=== PATIENT | male | born 1945 | race Caucasian/White ===

== ENCOUNTER 2019-07-29 17:07 | Inpatient (IN) | payer OTHER ==
[~2019-07-29] VITALS: Ht 190.5 cm; Wt 72.9 kg
--- NOTE | ~2019-07-29 | EMS ---
[facility] [address] [place] [address] EMS Patient Care Report Name: KALYAN WHITESIDE Room #: PRE MKareem#: [id number] Admission: Attend Phys: Discharge: Date of : 45 Report #: [id number] THIS REPORT FOR: //name// Report Transmitted: 07/29/2019 16:44 EMS Care Summary [place], [place]/[facility] Incident [id number] @ 07/29/2019 16:07 Incident Location [address] [place] [address] Patient VONDA WHITESIDE Male, 73 Years 1945 Patient Address [address] [place] [address] Patient History Congestive Heart Failure (CHF),Hypertension (HTN),Cardiac Condition - Other,Type 2 Diabetes, Patient Allergies No known allergies, Patient Medications Metformin, Carvedilol, Chief Complaint Weakness Disposition Transported No Lights/[place] Reason Breathing Problem Transported To [facility] Narrative Pt. reports recent weakness of greater than one week. He also has shortness of air that comes and goes. He has not eaten in three days due to significant [address] [address] EMS Patient Care Report Name: KALYAN WHITESIDE Room #: PRE Mackenzie#: [id number] Admission: Attend Phys: Discharge: Date of : 45 Report #: [id number] weakness. Home Health nurse agency is supposed to be helping him manage his medicines and help him care for wound on his right foot (post amputation) but they have not been actively involved. He is frustrated, out of meds, in pain and is struggling to care for his ADL's without assistance. Pt. denies cough but later clearing had a dry cough at least three times (mask placed on pt. upon arrival of [facility]). Pt. found in chair weak , no obvious life threats, but walking did seem to tire him out quickly and he was winded rule out COVID-19, generalized weakness, infected wound/sepsis stemming from right foot ulcer/wound Pt. assisted to cot, secured, to ambulance, EKG, bG, transported to hospital without changes, Low grade temporal temp upon arrival at [facility] (99.3), Care transferred to senior staff specialized employment with report given Initial Vitals @16:49P: 104,R: 37,TX Suspected: false @16:26P: 111,BP: 149/73,SpO2: 98, @16:57P: 101,R: 38,BP: 148/82,Pain: 4/10,GCS: 15,CO: 6,SpO2: 95,Revised Trauma: 11, Assessments @16:20MENTAL:Person Oriented,Event Oriented,Time Oriented,Place Oriented,SKIN:HEENT:LUNG SOUNDS:ABDOMEN:PELVIS//GI:EXTREMITIES:PULSE:NEURO: Impression Shortness of breath Procedures @16:20ALS AssessmentResponse: UnchangedSucceeded@16:22StretcherResponse: Unchanged Timeline 16:06,Call Received 16:06,Dispatch Notified 16:07,Dispatched 16:09,En Route 16:14,On Scene 16:17,At Patient 16:20,ALS Assessment,Response: UnchangedSucceeded, 16:22,Stretcher,Response: Unchanged 16:26,BP: 149/73 M,PULSE: 111,RR: R,SPO2: 98 Ox,ETCO2: ,BG: ,PAIN: ,GCS: , 16:34,Depart Scene 16:49,BP: / M,PULSE: 104,RR: 37 R,SPO2: Ox,ETCO2: ,BG: ,PAIN: ,GCS: , [facility] [address] [place] [address] EMS Patient Care Report Name: KALYAN WHITESIDE Room #: PRE M.R.#: [id number] Admission: Attend Phys: Discharge: Date of : 45 Report #: [id number] 16:57,BP: 148/82 M,PULSE: 101,RR: 38 R,SPO2: 95 Ox,ETCO2: ,BG: ,PAIN: 4,GCS: 15, 17:00,At Destination 17:38,Call Closed Disclaimer v1.1 Copyright 2020 [employer] This EMS Care Summary contains data elements from the applicable legal record (which may be displayed differently). It is designed to provide pertinent information for the following purposes: continuity of care, clinical quality, and state data reporting. The complete legal record is available to ED staff and administrators of the receiving hospital in [employer]'s Patient Tracker. All data is provided "as is."
--- NOTE | ~2019-07-29 | HC ---
[facility] [place] [address] CONSULTATION Name: VONDA WHITESIDE Room #: 439-P ADM IN M.R.#: [id number] Admission: 07/29/19 Attend Phys: Dania Aguirre Discharge: Date of : 45 Report #: [id number] THIS REPORT FOR: cc: PENELOPE - No family physician/PCP PENELOPE - Oksana family physician/PCP Michael Barkdsale MD ~ CC: [facility] physician/PCP Dania Aguirre DATE OF SERVICE: 08/01/2019 ORTHOPEDIC CONSULTATION CHIEF COMPLAINT: Right foot wound. HISTORY OF PRESENT ILLNESS: The patient is a pleasant 73-year-old gentleman seen for evaluation of his right foot. He is a poor historian and is able to provide some details regarding his foot, but he notes over the last few days, increased swelling and wound drainage from the plantar aspect of his foot. In January of 2019, he underwent toe/partial foot amputation by my partner, Dr. Simon Hernandez. He reports having some difficulty with that healing. He lives alone at home with his small dog, a ratter that he reports. He has been self isolating, has had no known exposure to any ill individuals. He denies any other symptoms than his right lower extremity. PAST MEDICAL HISTORY: Significant for diabetes wounds, peripheral neuropathy, peripheral vascular disease, hypertension, protein-calorie malnutrition. ALLERGIES: No known drug allergies. CURRENT MEDICATIONS: Please see current MAR. SOCIAL HISTORY: The patient is retired. He lives alone and has family in town per his report. VITAL SIGNS: Include temperature 37.1, pulse 67, respirations 17, BP 138/54. PHYSICAL EXAMINATION: GENERAL: The patient is alert, oriented, answering questions to the best of his ability. EXTREMITIES: Examination of the right lower extremity reveals 2 plantarly based wounds over the metatarsal heads. Drainage is noted here. These are full thickness lesions. He has first through third toes previously amputated. He has diminished sensation. Mild swelling of the foot. No lymphangitic streaking. No obvious pain, tenderness or swelling about the hindfoot or more distal leg. [address] [address] CONSULTATION Name: VONDA WHITESIDE Room #: 439-P ADM IN M.R.#: [id number] Admission: 07/29/19 Attend Phys: Dania Aguirre Discharge: Date of : 45 Report #: [id number] LABORATORY DATA: Reviewed. IMAGING STUDIES: Including radiographs and MRI was reviewed. The MRI demonstrates a fluid collection in the area of the second metatarsal head representing a subcutaneous abscess, abnormal signal within the distal aspect of the second metatarsal felt to represent osteomyelitis, previous amputations noted and then abnormal signal in the distal half of the third metatarsal. Mild soft tissue edema is noted. IMPRESSION: Persistent left forefoot wound/soft tissue infection and abscess/osteomyelitis involving the second and third metatarsals. PLAN: Reviewed with the patient potential treatment options including revision partial foot amputation at more of the transmetatarsal level versus a below-knee amputation. We discussed that the below-knee amputation would likely provide more consistent healing with reduced risk of persistent infection and having the need for continued revision type surgeries. The patient at this point has no interest in a below-knee amputation. He is willing to consent to revision of his previous surgery with an attempt to save as much length as possible while understanding the risks that this does have a high potential need for future surgery. We obviously cannot guarantee that the wound will heal or that he will have no further difficulties with this. He will need to continue with his IV antibiotics and the wound treatment. The patient felt comfortable proceeding in this manner and wished to proceed with the above. By: [id number] Michael Barksdale MD /nt
--- NOTE | ~2019-07-29 | O ---
[facility] [place] [address] OPERATIVE REPORT Name: VONDA WHITESIDE Room #: 439-P ADM IN M.R.#: [id number] Admission: 07/29/19 Attend Phys: Dania Aguirre Discharge: Date of : 45 Report #: [id number] THIS REPORT FOR: cc: [facility] - No family physician/PCP FAM - No family physician/PCP Michael Barksdale MD ~ CC: [facility] physician/PCP Dania Aguirre PREOPERATIVE DIAGNOSES: Right forefoot osteomyelitis involving the second and third metatarsals, plantarly based wounds, soft tissue abscess, history of prior foot amputation. POSTOPERATIVE DIAGNOSES: Right forefoot osteomyelitis involving the second and third metatarsals, plantarly based wounds, soft tissue abscess, history of prior foot amputation. PROCEDURE PERFORMED: Right transmetatarsal forefoot amputation. SURGEON: Michael Barksdale MD AUTO FLEET MANAGER: None. ANESTHESIA: General. FLUIDS: 400 mL crystalloid. ESTIMATED BLOOD LOSS: Approximately 5 mL. SPECIMENS: Right forefoot sent for specimen and cultures obtained from the forefoot abscess fluid. DESCRIPTION OF PROCEDURE: After proper identification of the patient and operative site in preoperative holding area, the operative site was signed by myself. The patient has been on IV antibiotics. We reviewed his MRI findings and discussed potential treatment options. The patient agreed to a transmetatarsal-type amputation to preserve as much of the foot as possible. We again reviewed the potential for this having persistent infection or not healing or delayed healing of the soft tissues and the potential need for further care and treatment including revision amputation at a higher level. The patient was aware of this and wished to proceed with the above. He was brought back to the operative suite after induction of satisfactory general anesthesia. The right lower extremity was sterilely prepped and draped in the usual manner. A tourniquet had been applied to the upper thigh. The limb was elevated for exsanguination purposes and the tourniquet was inflated to 300 mmHg. At this point, fishmouth-type incisions were planned. The patient had two separate plantarly based full-thickness ulcerations in the region of the first and second [address] [address] OPERATIVE REPORT Name: STEVOVONDA Room #: 439-P ADM IN M.R.#: [id number] Admission: 07/29/19 Attend Phys: Dania Aguirre Discharge: Date of : 45 Report #: [id number] metatarsal heads. These fishmouth and flaps were created proximal to this and extended through the deeper soft tissues. An oscillating saw was utilized to perform osteotomies of the first through fifth metatarsals. Care was taken to ensure there were no significant sharp edges or bony prominences that may lead to further ulceration. The soft tissues were thoroughly irrigated with antibiotic irrigant, but prior to doing so, cultures were obtained. The skin of the flaps appeared viable again with his peripheral vascular disease as we had talked about preoperatively. We will see what his blood flow and healing potential is with respect to healing. The tourniquet was deflated. There was a small amount of punctate bleeding in 2 small plantarly based vessels that were cauterized to maintain good hemostasis. At this point, a xhqpv-lgjulab-ekqx Eddie drain was placed deep. The soft tissues were closed with 2-0 nylon. A sterile compressive dressing was applied. He was awakened and transferred to the recovery room in stable condition. By: [id number] Michael Barksdale MD /nt
[~2019-07-29 17:07] MED LIST: ALLOPURINOL 30300 M1 PO; ASPIRIN81 M2 PO; COZAAR 50 MG TA50 M1 PO; FUROSEMIDE 40 M40 M1 PO; GEMFIBROZIL 60600 MG PO; GLIPIZIDE ER2.5 MG PO; GLUCOPHAGE1000 MG PO; KLOR-CON 1010 MEQ PO; NEURONTIN600 MG PO; NORCO 5-325 TA1 EACH PO; PRAVACHOL 20 MG20 M1 PO
[2019-07-29 17:09] VITALS: BP 142/89
[2019-07-29 17:33] LABS: ABSOLUTE NEUTROPHILS 9.7 thou/uL (1.4-8.2); BASOPHILS 0.3 % (0.0-2.0); EOSINOPHILS 0.3 % (0.0-3.0); HEMATOCRIT 31.2 % (42.0-52.0); HEMOGLOBIN 9.9 gm/dL (14.0-18.0); LYMPHOCYTES 6.8 % (24.0-44.0); MCH 29.7 pg (26.0-34.0); MCHC 31.8 g/dL (28.0-37.0); MCV 93.3 fL (80.0-100.0); MONOCYTES 6.3 % (1.0-8.0); PLATELET COUNT 375 thou/uL (150-400); POLYS 86.3 % (36.0-66.0); RBC 3.34 mil/uL (4.50-6.00); RDW 15.8 % (10.5-14.5); WBC 11.3 thou/uL (4.0-11.0)
[2019-07-29 17:41] LABS: CALCIUM 9.1 mg/dL (8.5-10.1); CREATININE 1.5 mg/dL (0.7-1.3); POTASSIUM 4.2 mmol/L (3.5-5.1)
[2019-07-29 17:47] LABS: ALBUMIN 2.3 g/dL (3.4-5.0); DIRECT BILIRUBIN 0.2 mg/dL (<0.1-0.2); TOTAL BILIRUBIN 0.5 mg/dL (<0.1-1.0); TOTAL PROTEIN 8.1 g/dL (6.4-8.2)
[2019-07-29 18:59] LABS: CHOLESTEROL 62 mg/dL (<200); HDL CHOLESTEROL 15 mg/dL (>40); LDL CHOLESTEROL 34 mg/dL (<100); TC:HDL 4.1 Ratio (Not establshd); TRIGLYCERIDE 67 mg/dL (<150); VLDL 13 mg/dL (<40)
--- NOTE | 2019-07-29 19:20 | NUR ---
FLAKE CUTTER OPERATOR CALLED TO GIVE REPORT TO INPATIENT NURSE BUT WAS TOLD THEY WERE IN THE MIDDLE OF SHIFT CHANGE AND CALL WILL BE RETURNED.
[2019-07-29 19:25] VITALS: BP 110/47
--- NOTE | 2019-07-29 19:30 | NUR ---
AUTOMATIC WHEEL LINE OPERATOR PLACED SECOND CALL TO INPATIENT UNIT, WAS TOLD RECIEVING NURSE WAS STILL IN THE MIDDLE OF SHIFT CHANGE AND WILL RETURN CALL DEYANIRA.
[2019-07-29 20:06] VITALS: BP 128/56
[2019-07-29 23:40] VITALS: BP 150/65
--- NOTE | 2019-07-30 01:54 | NUR ---
PT ARRIVED TO UNIT FROM [address] [place] [address] VIA BED ACCOMPANIED BY RN AND CARTON STAPLER. PT REPORTEDLY ADMITTED TO [address] [place] [address] ARRIVING IN THE SEVEN O'CLOCK (PM) HOUR. DUE TO REPORTED COUGH AND SOA PT WAS TRANSFERED HERE TO ROOM 355 A PUI FOR COVID-19 INFECTION. PT ARRIVED AT 2252 WITH IVF INFUSING. PT WAS IRRITABLE AND DEMANDING. "HURRY UP, AND TURN THOSE OVER HEAD LIGHTS OFF. THEY BOTHER MY EYES. EVERY DAMN TIME I COME HERE THEY LEAVE THOSE DAMN LIGHTS ON. I WANT YOU TO TURN THOSE LIGHTS OFF. AND HURRY UP, I HAVEN'T SLEEP IN TWO DAYS, I'M TIRED." PER ER TRIAGE NOTES, PT ARRIVED COMPLAINING OF SOA AND COUGH. "NO I DIDN'T. I DON'T HAVE THAT VALDEZ VIRUS. I DON'T HAVE HARDLY ANY COUGH AND I'M WASN'T HAVING ANY SOA. I CAME HERE BECAUSE OF MY FOOT. IT'S INFECTED AND ITS STARTING TO HURT." PT WOULD RECURRENTLY STATES THESE THINGS OVER AND OVER AGAIN. HAD TO BE ENCOURAGED TO ALLOW THE COVID-19 SWAB TO BE TAKEN. "WILL THIS PROVE I DON'T HAVE IT?" PT DID FINALLY ALLOW THE SWAB TO BE DONE. ORDERS IN PROGRESS. ADMISSION ASSESSMENTS COMPLETED. DENIES ANY ALLERGIES. STATES HE USES [facility] BUT WAS UNSURE OF ITS EXACT ADDRESS. ALSO DOES NOT KNOW HIS MEDICATIONS. "I TAKE LIKE TWENTY DIFFERENT MEDICATIONS. I CAN'T KNOW THEM ALL. AND I DIDN'T BRING A LIST. I CAN'T EVEN GET MY HEART MEDICATION REFILLED OR ANY PAIN MEDICATION." REFUSED TO RATE PAIN IN RIGHT FOOT ON A NUMERIC SCALE, WOULD ONLY SAY "ITS HURTS." FACES SCALE USED. DENIED USING ANY TYLENOL OR IBUPROFEN FOR PAIN. "TYLENOL WOULDN'T DO A DAMN THING ANYWAY." STATED HE HAD HEART PROBLEMS BUT WAS UNABLE TO PROVIDED FURTHER DETAILS. "LETS SAY I HAVE CONGESTIVE HEART FAILURE OK." DENIED EVER HAVING AN ECHO DONE. "I CAME HERE HOPING TO SEE A BASTER HAND. HE'LL RENEW MY HEART MEDICATIONS. VIEW MEDICATION CLAIM HISTORY, NO SCRIPS FILLED SINCE AUGUST OF 2018. PT DID NOT PROVIDE AN ANSWER TO THE QUESTION OF WHEN DID HE LAST FILL ANY PRESCRIPTIONS. STATES HE IS ABLE TO MOVE AROUND HIS APARTMENT WITH A CANE. "I GET AROUND MY APARTMENT FINE. I ALSO HAVE A SCOOTER I CAN USE."
--- NOTE | 2019-07-30 04:15 | NUR ---
PATIENT ARRIVED ON UNIT AT 2034 VIA CART FROM ER ACCOMPANIED BY ED PERSONEL. TEMP WAS TAKEN AND IT WAS 102.2. CALLED INVESTIGATOR UTILITY BILL COMPLAINTS AND LAW ENFORCEMENT INSTRUCTOR. PATIENT'S STATUS WAS CHANGED TO R/O COVID-19 EVEN THOUGH PATIENT SAYS HE DOES NOT HAVE IT. PATIENT DEMANDING WANTING THIS AND THAT RIGHT NOW. TRANSFERRED TO 3W VIA BED. REPORT WAS GIVEN TO RN ON 3W.
[2019-07-30 06:30] VITALS: BP 144/92
[2019-07-30 08:18] VITALS: BP 133/54
--- NOTE | 2019-07-30 08:33 | EKG ---
[facility] [place] [address] [place] [address] ELECTROCARDIOGRAM REPORT Name: VONDA WHITESIDE Room #: 355- ADM IN M.R.#: [id number] Admission: 07/29/19 Attend Phys: Dania Aguirre Discharge: Date of : 45 Report #: [id number] THIS REPORT FOR: cc: PENELOPE - No family physician/PCP PENELOPE - No family physician/PCP Jonathan Boo MD [facility] THIS REPORT FOR: //name// [facility] ED Test Date: 2019-07-29 Test Time: 17:19:15 Pat Name: VONDA WHITESIDE Department: Room: [facility] Gender: M Chairman President And Chief Executive Officer: [facility] : 1945 Requested By: Curt Shelton Order Number: [id number] MD: Jonathan Boo Measurements Intervals [place] Rate: 98 P: 76 VT: 201 QRS: 14 QRSD: 147 T: -25 QT: 363 QTc: 464 Interpretive Statements Sinus rhythm Right bundle branch block Compared to ECG 11/18/2012 11:56:46 Right bundle branch block is now present Electronically Signed On 07-30-2019 8:31:59 CDT by Jonathan Boo [email or web address] <ELECTRONICALLY SIGNED> By: Jonathan Boo MD, [facility] 07/30/19 0831 1719 1719 Jonathan Boo MD, [facility] /EPI
[2019-07-30 10:43] LABS: URINE BILIRUBIN NEGATIVE (Negative); URINE BLOOD NEGATIVE (Negative); URINE CLARITY CLEAR; URINE COLOR YELLOW; URINE GLUCOSE-RANDOM* NEGATIVE (Negative); URINE KETONES NEGATIVE (Negative); URINE LEUKOCYTES-REFLEX NEGATIVE (Negative); URINE NITRITE-REFLEX NEGATIVE (Negative); URINE PROTEIN (DIPSTICK) NEGATIVE (Negative)
--- NOTE | 2019-07-30 10:54 | EKG ---
[facility] [place] [address] ELECTROCARDIOGRAM REPORT Name: VONDA WHITESIDE Room #: 355-P ADM IN M.R.#: [id number] Admission: 07/29/19 Attend Phys: Dania Aguirre Discharge: Date of : 45 Report #: [id number] THIS REPORT FOR: cc: PENELOPE - Oksana family physician/PCP PENELOPE - No family physician/PCP Maco Parish MD ~ THIS REPORT FOR: //name// [facility] ED Test Date: 2019-07-29 Test Time: 19:17:06 Pat Name: VONDA WHITESIDE Department: Room: Gender: Male Mask Designer: JOSUE : 1945 Requested By: Order Number: [id number] MD: Maco Parish Measurements Intervals [place] Rate: 92 P: 47 [place]: 190 QRS: -8 QRSD: 151 T: -8 QT: 400 QTc: 495 Interpretive Statements Sinus rhythm Probable left atrial enlargement IVCD, consider atypical RBBB Artifact in lead(s) I,II,aVF,V1,V2,V3,V4,V5 Compared to ECG 11/18/2012 11:56:46 No significant changes Electronically Signed On 07-30-2019 10:52:43 CDT by Maco Parish [email or web address] <ELECTRONICALLY SIGNED> By: Maco Parish MD 07/30/19 1052 16 16 Maco Parish MD /EPI
--- NOTE | 2019-07-30 13:10 | NUR ---
INITIAL ASSESSMENT: Received consult. JOSE ALFREDO reviewed chart and spoke with nursing and attending physician. Pt was admitted from home due to right foot diabetic ulcer/abscess. Pt with hx of toe amputations on his right food. Ortho and surgery consulted. Pt is in Enhanced Isolation to r/o COVID-19. MRI pending results of COVID. SW spoke with pt via phone. Introduced role of SW. Pt appears to be alert/orientated x 4. Lengthy discussion with pt regarding his prior level of functioning and discharge plan. Pt reports he lives alone in an apt with elevator access. No stairs to navigate. Pt has a scooter and cane. Pt is currently on service with [facility] for RN visits. Pt also has [place]-Medicaid in home care through [facility] for home health aide services. Pt does have a PCP. Pt has been to [facility] three times in the past, and is agreeable with returning there if needed. Pt may need partial foot amputation. Pt is hoping that it will not come to that. Pt is not . Does not have children. His niece is involved in his care, and his friend, Saundra, assists him with his care needs. Pt states that he is interested in assisted living in the future. SW is following to assist as needed with discharge planning.
[2019-07-30] MEDS ORDERED: VITAMIN B-121000 MC2 SUBLING (15:06)
[2019-07-30] MEDS ORDERED: PLAVIX 75 MG TA75 MG PO (15:07)
[2019-07-30] MEDS ORDERED: ATORVASTATIN CA80 MG PO (15:08)
[2019-07-30] MEDS ORDERED: AMITRIPTYLINE H10 M3 PO (15:09)
[2019-07-30] MEDS ORDERED: LISINOPRIL2.5 MG PO (15:10)
[2019-07-30] MEDS ORDERED: ALLOPURINOL 10100 M1 PO (15:11)
[2019-07-30] MEDS ORDERED: HYDRALAZINE 10M10 MG PO (15:11)
[2019-07-30] MEDS ORDERED: CARVEDILOL12.5 MG PO (15:12)
[2019-07-30] MEDS ORDERED: TAMSULOSIN HCL0.4 MG PO ×2 (15:13→15:15)
--- NOTE | 2019-07-30 17:04 | NUR ---
Assumed care approx 0700. Pt alert and oriented x4. Pt agitated because he doesn't believe he has COVID-19. Explained to pt that this is rule-out at this time. Spoke to pt's IFRAH, Rashida, and she provided contact information for pt's HH. Spoke to Ellie at [facility] and she provided updated med list and diagnoses. Meds and medical diagnoses updated in chart. Ellie reported that pt drinks 3 glasses of whiskey per day and a h/o AFIB. Dr. Aguirre notified. Ativan ordered for prn ETOH withdrawal. Pt has been afebrile this shift. Pt tolerating room air at this time. No signs of respiratory distress. Pt wound on Rt foot dressed this AM. COVID-[address] Aguirre notified and orders given for med/surg. Pt slowly progressing towards plan of care goals. Will continue to monitor.
[2019-07-30 17:17] VITALS: BP 127/57
[2019-07-30 19:50] VITALS: BP 97/52
[2019-07-31 03:40] VITALS: BP 115/56
--- NOTE | 2019-07-31 05:42 | NUR ---
Assumed pt care at 1900. Pt's A/OX4. VSS.Denies pain on assessment. Woundcare to right foot done w/o problems at HS. Pt reports he uses an electric W/C @ home so he doesn't walk for long distances. Voiding per urinal,with frequent spills in bed. Abd distended but soft to touch. IVF infusing via RFA w/o problems. Fall precautions in place, calls approp for help. Supposed to get an MRI of his foot states he'll answer questionare later. Will continue to monitor pt.
[2019-07-31 07:33] VITALS: BP 128/59
--- NOTE | 2019-07-31 14:05 | NUR ---
PT TO HAVE AN MRI THIS DAY AND ORTHO HAS BEEN CONSULTED. CM TO FOLLOW INDICATED WITH DC PLANNING.
[2019-07-31 15:26] VITALS: BP 121/48
--- NOTE | 2019-07-31 19:11 | NUR ---
VSS-AFEBRILE. ROOM AIR. DENIES PAIN. FALL PRECAUTIONS IN PLACE. TUR NS SELF
[2019-07-31 20:06] VITALS: BP 138/54
[2019-08-01 03:47] VITALS: BP 129/42
[2019-08-01 05:51] LABS: HEMATOCRIT 26.5 % (42.0-52.0); HEMOGLOBIN 8.4 gm/dL (14.0-18.0); MCH 29.7 pg (26.0-34.0); MCHC 31.7 g/dL (28.0-37.0); MCV 93.6 fL (80.0-100.0); RBC 2.83 mil/uL (4.50-6.00); RDW 16.1 % (10.5-14.5); WBC 7.5 thou/uL (4.0-11.0)
[2019-08-01 06:08] LABS: ALBUMIN 1.5 g/dL (3.4-5.0); CALCIUM 7.6 mg/dL (8.5-10.1); CREATININE 0.9 mg/dL (0.7-1.3); PHOSPHORUS 5.2 mg/dL (2.5-4.9); POTASSIUM 3.9 mmol/L (3.5-5.1)
[2019-08-01 09:43] VITALS: BP 135/56
--- NOTE | 2019-08-01 11:32 | NUR ---
Assumed pt care at 7am.Pt left for surgery around shift change this morning per bed and returned to floor at 0940 in stable condition.Post assessment completed and am meds given as ordered but insulin.Dr Aguirre here,new order noted.Pt refused morfin cath insertion after bladder scan shows >229,Dr Aguirre notified.Surgigal drsg c/d/i to rt foot.Medicated pt with po pain med with relief.Will continue to monitor.
--- NOTE | 2019-08-01 14:40 | NUR ---
ON-GOING ASSESSMENT: CM REVIEWED CHART AND SPOKE WITH ATTENDING. PT IS S/P RT TRASMET AMPUTATION. ATTENDING STATING PATIENT WILL LIKELY NEED SNF. PT/OT IS ORDERED BUT EVALS ARE PENDING. CM SPOKE WITH PATIENT ABOUT POSSIBLE NEED FOR SNF, HE PREFERS TO GO TO [facility] BEING THERE IN THE PAST. CM FAXED REFERRAL AND SPOKE WITH CATHY AT [facility]. SHE STATES PT WILL BE ON 14 DAY QUARENTINE DUE TO NEW RESTRICTIONS WITH COVID 19 PANDEMIC. PT DISCUSSED THAT HE HAS A POWER WHEELCHAIR AT HOME AND WISHES TO BORROW ONE WHILE THERE. CM DISCUSSED WITH CATHY AND SHE STATED THEY COULD ARRANGE THIS BUT HE WILL ALSO JUST BE IN HIS ROOM SO MAY NOT NEED IT BUT THEY COULD ARRANGE. CATHY ALSO WANTED TO NOTIFY PT THEY ARE NOT LETTING PATIENTS OUTSIDE TO SMOKE. CM NOTIFIED PATIENT.
[2019-08-01 19:18] VITALS: BP 119/63
--- NOTE | 2019-08-02 02:22 | NUR ---
ASSSESSED AT START OF SHIFT PT C/O OF PAIN IN NECK AND RT FOOT. DRESSING INTACT FROM SX. HYDROCODONE GIVEN FOR PAIN. BLOOD SUGAR CHECKED NON ADMISTERED DUE TO LOW BLOOD GLUCOSE ALL DAY. IV INTACT AND ABX INFUISING. FALL PREC IN PLACE AND CALL LIGHT IN REACH WILL CONT WITH POC TILL EOS.
[2019-08-02 03:22] VITALS: BP 141/61
[2019-08-02 09:30] VITALS: BP 128/60
[2019-08-02 12:49] LABS: HEMATOCRIT 28.2 % (42.0-52.0); HEMOGLOBIN 9.1 gm/dL (14.0-18.0); MCH 30.4 pg (26.0-34.0); MCHC 32.3 g/dL (28.0-37.0); MCV 94.1 fL (80.0-100.0); RBC 2.99 mil/uL (4.50-6.00); RDW 16.3 % (10.5-14.5); WBC 9.2 thou/uL (4.0-11.0)
[2019-08-02 12:52] LABS: ALBUMIN 1.7 g/dL (3.4-5.0); PHOSPHORUS 3.4 mg/dL (2.5-4.9); POTASSIUM 4.8 mmol/L (3.5-5.1)
[2019-08-02 15:01] VITALS: BP 128/60
--- NOTE | 2019-08-02 15:06 | NUR ---
PT ON SERVICE WITH [facility] PRIOR TO ADM FAXED REFERRAL FOR RESUMPTION OF CARE AT DISCHARGE. SPOKE WITH MARIANNA IN INTAKE SHE RECEIVED REFERRAL AND WILL RESUME CARE AT DC. ANTICIPATE DC TOMORROW PLEASE FAXED DC ORDERS/SUMMARY TO [phone] AND CALL [phone] TO NOTIFY OF DC.
--- NOTE | 2019-08-02 15:11 | NUR ---
PT IS REFUSING SNF PLACEMENT AT [facility] WHO CAN ACCEPT HIM. PT IS INSISTANT ON DISHCARGEING HOME. DISCHARGE ANTICIAPTED FOR TOMORROW WITH [facility] . ORDERS WILL NEED TO BE FAXED TO . IF PT NEEDS TRANSPORT HOME CALL [facility] AT .
[2019-08-02 16:34] VITALS: BP 138/65
--- NOTE | 2019-08-02 16:37 | NUR ---
ASSUMED CARE AT 0700. PT ALERT AND ORIENTED. VSSA, RA. NO COMPLAINTS. STATING DOES NOT WANT TO GO TO PENITENTIARY AT DISCHARGE. PIV WITHOUT COMPLICATIONS. DRESSING C/D/I. WILL CONTINUE TO MONITOR
[2019-08-02 19:48] VITALS: BP 142/54
--- NOTE | 2019-08-03 04:52 | NUR ---
PT ALERT AND ORIENTED, NELSON LAGOON.PT REQUIRES MAX ASSIST TO THE BSC.DRSG INTACT TO R FOOT. AFEBRILE. DENIES PAIN.CALLS WITH NEEDS.
[2019-08-03] MEDS ORDERED: AUGMENTIN 875-1 EACH PO (08:37)
[2019-08-03] MEDS ORDERED: HYDROCODON-ACE1 EAC7 PO (08:38)
[2019-08-03 08:44] VITALS: BP 135/66
[2019-08-03 16:06] VITALS: BP 141/42
--- NOTE | 2019-08-03 19:33 | NUR ---
Assumed care of pt at 0700. Pt a&ox4. Dressing on right foot changed by physician. Uses urinal. IV antibiotics infusing. Pain controlled with prn pain meds. Fall precautions in place. Report given to lily BRANHAM.
--- NOTE | 2019-08-03 19:35 | NUR ---
Pt transferred to unit from 3W. Pt c/o back pain. Requests for IV pain meds to be put back on his eMar. Provider aware. Only PO pain meds to be given. SBA to the toilet. Fall precautions in place. Report given to lily BRANHAM.
[2019-08-03 20:14] VITALS: BP 139/40
--- NOTE | 2019-08-03 23:39 | NUR ---
ASSUMED CARE OF PT @1900 PT ASSESSED AT START OF SHIFT A&OX4. RT FOOT DRESSING INTACT. IV IN PLACE AND ABX INFUISING. BLOOD SUGAR CHECKED. EVENING MEDS GIVING AND PT ALBERTO IT WELL. FALL PREC IN PLACE AND CALL LIGHT IN REACH WILL CONT WITH POC TILL EOS.
[2019-08-04 04:00] VITALS: BP 142/55
[2019-08-04 07:24] VITALS: BP 143/55
[2019-08-04 16:23] VITALS: BP 158/59
--- NOTE | 2019-08-04 18:21 | NUR ---
Assumed pt care at 7am.Pt in bed at alltimes sleeping on and off.Assessment completed.vss.Pt refused insulin twice but took some for dinner.Dr Barnes here and she replaced drsg to rt foot.Pt tolerated meds and diet.Pain med given later this evening per pt request with relief.Piv dc'd due to leaking. Will replace before shift change.
[2019-08-04 19:28] VITALS: BP 111/41
--- NOTE | 2019-08-05 02:14 | NUR ---
PT C/O PAIN ON HISFOOT,MANAGED WITH MED.PT'S IV WENT BAD DURING SHIFT CHANGE,HAVE ATTEMPTED A COUPLE OF TIMES,NOT SUCCESSFUL,MANAGER FOOD NOTIFIED.DRSG ON HIS R FOOT C/D/I.PT USES A URINAL,ADEQUATE AMT OF URINE NOTED.PT HAVE A TEMP OF 100.2,TYLENOL GIVEN,TEMP DOWN TO 97.8.PT RESTING ON HIS BED AT THIS TIME.FALL PRECAUTIONS IN PLACE,CALL LIGHT WITHIN REACH.
[2019-08-05 05:09] VITALS: BP 168/58
[2019-08-05 05:53] LABS: ABSOLUTE NEUTROPHILS 5.8 thou/uL (1.4-8.2); BASOPHILS 1.1 % (0.0-2.0); HEMATOCRIT 28.5 % (42.0-52.0); HEMOGLOBIN 8.9 gm/dL (14.0-18.0); LYMPHOCYTES 15.7 % (24.0-44.0); MCH 29.5 pg (26.0-34.0); MCHC 31.3 g/dL (28.0-37.0); MCV 94.4 fL (80.0-100.0); MONOCYTES 6.2 % (1.0-8.0); PLATELET COUNT 390 thou/uL (150-400); RBC 3.02 mil/uL (4.50-6.00); RDW 16.4 % (10.5-14.5); WBC 7.9 thou/uL (4.0-11.0)
[2019-08-05 06:17] LABS: CALCIUM 8.4 mg/dL (8.5-10.1); POTASSIUM 4.3 mmol/L (3.5-5.1)
[2019-08-05 11:49] VITALS: BP 128/60
[2019-08-05] MEDS ORDERED: GLUCOPHAGE1000 MG PO (14:32)
[2019-08-05 16:12] VITALS: BP 146/54
--- NOTE | 2019-08-05 17:09 | NUR ---
PT DISCHARGING TODAY TO HOME WITH [facility] FAXED DC ORDERS/SUMMARY RECEIVED CONFIRMATION AND ARRANGED TRANSPORTATION HOME WITH [facility] FOR 4:00 THEY ARRIVED ON TIME BUT PT WAS NOT DRESSED AND SCRIPTS HAD NOT BEEN CALLED DOWN TO [facility] SO [employer]IDENTIAL [employer] [facility]PR[employer] WAS SENT BACK. NOTIFIED [facility] AND ARRANGED FOR TRANSPORT TO BE AT [phone].
--- NOTE | 2019-08-05 19:06 | NUR ---
PT A&OX4, VSS, DENIED PAIN. PATIENT DISCHARGED HOME WITH [facility]ALTH. ALL BELONGINGS WITH PATIENT, IV REMOVED. NO SIGNS OF DISTRESS AT DISCHARGE. DRESSING CHANGED AND PHOTO TAKEN OF RIGHT FOOT PER ORDERS.
--- NOTE | 2019-08-06 10:07 | PATH ---
[facility] [address] [place] [address] PATHOLOGY RPT PROCEDURE Name: HELADIO HWITESIDE Room #: 439-P DIS IN M.R.#: [id number] Admission: 07/29/19 Date of : 45 Discharge: 08/05/19 Report #: [id number] Path Case #: [id number] LCA Accession Number: [id number] . 01 Material submitted: . foot - RIGHT FOREFOOT. Modifiers: right . 01 Clinical history: . Osteomyelitis . 02 Diagnosis: Skin, soft tissue and bone "right forefoot", metatarsal amputation: - Ulceration of skin with marked acute and chronic inflammation and associated osteomyelitis. - Negative for malignancy. (MLK:dilip; 08/05/2019) QMS 08/06/2019 0908 Local . 02 Electronically signed: . Gilma Ardon MD, Pathologist NPI- [id number] . 01 Gross description: . The specimen is received in formalin, labeled "Heladio Whiteside, right forefoot". Received is a partial right forefoot amputation measuring 10.2 cm from medial to lateral, 7.3 cm from proximal to distal, and 4.3 cm from dorsal to plantar. Toes 1 through 3 are absent. The nails are present on toes 4 and 5 displaying a light brown to pale daniels and thickened appearance. The epidermal surface overlying the previous amputation sites of toes 1 through 3 is yellow-daniels and flaky to crusted in appearance. On the plantar aspect of the first metatarsal head is an ulcerated to necrotic appearing lesion measuring 1.5 x 1.5 cm. This is located is 1.1 cm from the closest skin margin. On the plantar aspect of the second metatarsal head an ulcer measuring 1.7 x 0.9 cm, which exposes underlying bone, and is 1.5 cm from the closest skin margin. Onthe dorsal aspect of the fourth toe, there are two light daniels to daniels-brown, focally crusted lesions measuring 0.4 x 0.3 and 1.0 x 0.8 cm, which are 2.5 cm from the closest skin margin. The bone margins of metatarsals 1 through 4 are blunt in appearance, consistent with transection, and the bone margin of toe 5 is smooth and concave in appearance, consistent with disarticulation. The first metatarsal is loosely attached by a slight amount of soft tissue. The bone margins are inked as follows: Metatarsal 1-black, metatarsal 2-blue, metatarsal 3-yellow,metatarsal 4-red, toe 5-orange. The specimen is sub- mitted representatively as follows: . A1 access services representative section of lesion on plantar aspect of first metatarsal head, following decalcification [address] [address] PATHOLOGY RPT PROCEDURE Name: HELADIO WHITESIDE Room #: 439-P DIS IN M.R.#: [id number] Admission: 07/29/19 Date of : 45 Discharge: 08/05/19 Report #: [id number] Path Case #: [id number] A2 longitudinal cross-section through bone margin of first metatarsal (black ink), following decalcification A3 access services representative section of ulcer plantar surface second metatarsal head, follwoing decalcification A4 longitudinal cross-section through bone margin of second metatarsal (blue ink), following decalcification A5 longitudinal cross-section through bone margin of third metatarsal (yellow ink), following decalcification A6 longitudinal cross-section through bone margin of fourth metatarsal (red ink), following decalcification A7 longitudinal cross-section through both lesions on dorsal aspect of fourth toe, following decalcification A8 longitudinal cross-section through bone margin of fifth toe (orange ink), following decalcification. (CAA; 08/02/2019) QAC/QAC 08/06/2019 0908 Local . 02 Pathologist provided ICD-10: L97.519, L98.9, M86.171 . 02 CPT . 364582, [id number] Specimen Comment: A courtesy copy of this report has been sent to [phone] Specimen Comment: Report sent to Performed at: 01 [facility] [address] [id number] MD Marvin Downey MD Phone: [phone] Performed at: 02 [facility] [address] [id number] MD Brian Garza MD Phone: [phone]
--- NOTE | 2019-08-07 12:06 | HC ---
[facility] [place] [address] CONSULTATION Name: VONDA WHITESIDE Room #: 439-[facility] IN M.R.#: [id number] Admission: 07/29/19 Attend Phys: Dania Aguirre Discharge: 08/05/19 Date of : 45 Report #: [id number] THIS REPORT FOR: cc: PENELOPE - No family physician/PCP FAM - No family physician/PCP Sagar Estrada MD ~ CC: PENELOPE physician/PCP Dania Aguirre DATE OF SERVICE: 07/30/2019 CHIEF COMPLAINT: Foot ulcerations with possible osteomyelitis. HISTORY OF PRESENT ILLNESS: This is a 73-year-old male patient with whom I am familiar from previous hospitalization. He has had ongoing issues with infections involving his toes and osteomyelitis. He has developed increasing pain, swelling, drainage to his right foot and has been admitted to the hospital for further evaluation and treatment. The patient denies significant pain, but notes increased drainage. PAST MEDICAL HISTORY: Significant for history of peripheral arterial disease, type 2 diabetes mellitus, prior osteomyelitis with multiple amputations of portions of the toes, tobacco and alcohol abuse and severe protein-calorie malnutrition. MEDICATIONS: Include Lasix, pravastatin, potassium chloride, losartan, allopurinol, gemfibrozil, hydrocodone, and tamsulosin. ALLERGIES: No known drug allergies. SOCIAL HISTORY: Positive for alcohol and tobacco use. FAMILY HISTORY: Noncontributory. REVIEW OF SYSTEMS: CONSTITUTIONAL: The patient denies fever, chills or weight loss. NEUROLOGICAL: The patient denies focal weakness, numbness or tingling. EYES: The patient denies visual changes, redness, or drainage. ENT: The patient denies earache, nasal drainage, sore throat. CARDIOVASCULAR: The patient denies chest pain, palpitations or diaphoresis. PULMONARY: The patient denies cough or shortness of breath. GASTROINTESTINAL: The patient denies nausea, vomiting, diarrhea. ORTHOPEDIC: The patient notes the ulcerations to both feet, greater on the right than the left. Other systems in a 14-point review of systems are negative. [address] [address] CONSULTATION Name: VONDA WHITESIDE Room #: 439-P [facility] IN M.R.#: [id number] Admission: 07/29/19 Attend Phys: Dania Harris Donaedwin Discharge: 08/05/19 Date of : 45 Report #: [id number] PHYSICAL EXAMINATION: VITAL SIGNS: Include temperature 97.8, pulse 69, respiratory rate 18, and blood pressure 97/52. GENERAL: This is a chronically ill-appearing male patient who appears to be in no distress. HEENT: Head normocephalic. Nose and throat are clear. NECK: Supple. LUNGS: Clear. ABDOMEN: Soft. Bowel sounds present. The abdomen is distended, nontender. EXTREMITIES: Lower extremities demonstrate ulcerations involving the right forefoot, multiple prior surgical changes to the toes. There is drainage in some of these areas probe close to bone. He has callus and very dry, rough skin on the left side. NEUROLOGIC: The patient is alert and oriented. LABORATORY DATA: Includes sodium 135, potassium 4.2, chloride 100, CO2 of 24, BUN 40, creatinine 1.5, and glucose 115. CRP is 249, total protein is 8.1, and albumin is 2.3. White blood cell count 11.3 with hemoglobin 9.9. CLINICAL IMPRESSION: 1. Cellulitis of the right lower extremity with diabetic ulceration to the plantar surface of the right foot. 2. Dehisced surgical incision status amputation of the first, second and third toes of the right foot. 3. Callus and pre-ulceration to the plantar aspect of the left foot. 4. Type 2 diabetes mellitus and peripheral arterial disease. 5. Tobacco abuse. 6. Alcohol abuse. 7. Severe protein-calorie malnutrition. RECOMMENDATIONS: At this point in time, we will recommend a Dakin's moist gauze dressing to the right foot, betadine to the pre-ulcerated areas of the left foot. X-ray is suspicious for osteomyelitis. We will recommend an MRI and he will need surgical consultation and I have consulted and placed an [facility]. He will need to maximize nutrition for wound healing. I appreciate being asked to see him in consultation. <ELECTRONICALLY SIGNED> By: aSgar Estrada MD 08/07/19 1206 1738 1827 Sagar Estrada MD /nt
== END 2019-08-05 18:49 | disposition home health service (06) | DRG 853 ==
LOC: ER 17:07 → 3W 18:33 → EROBS 18:33 → 4S 20:05 → 3W 20:41 → 4S 07-30 17:35
PROVIDERS: Emergency Medicine; Internal Medicine; ADMIT Hospitalist
PROC: 0Y6M0Z9 Detachment at Right Foot, Partial 1st Ray, Open Approach (ICD-10-PCS; principal; 2019-08-01)
PROC: 0Y6M0ZD Detachment at Right Foot, Partial 4th Ray, Open Approach (ICD-10-PCS; principal; 2019-08-01)
PROC: 0Y6M0ZC Detachment at Right Foot, Partial 3rd Ray, Open Approach (ICD-10-PCS; principal; 2019-08-01)
PROC: 0Y6M0ZF Detachment at Right Foot, Partial 5th Ray, Open Approach (ICD-10-PCS; principal; 2019-08-01)
PROC: 0Y6M0ZB Detachment at Right Foot, Partial 2nd Ray, Open Approach (ICD-10-PCS; principal; 2019-08-01)
DX: A41.9 Sepsis, unspecified organism (principal); E43 Unspecified severe protein-calorie malnutrition; L03.115 Cellulitis of right lower limb; M86.9 Osteomyelitis, unspecified; N17.9 Acute kidney failure, unspecified; L02.611 Cutaneous abscess of right foot; I42.9 Cardiomyopathy, unspecified; D68.69 Other thrombophilia; M86.8X7 Other osteomyelitis, ankle and foot; T81.31XA Disruption of external operation (surgical) wound, not elsewhere classified, initial encounter; E11.51 Type 2 diabetes mellitus with diabetic peripheral angiopathy without gangrene; F17.210 Nicotine dependence, cigarettes, uncomplicated; I50.9 Heart failure, unspecified; E11.42 Type 2 diabetes mellitus with diabetic polyneuropathy; E11.621 Type 2 diabetes mellitus with foot ulcer; L97.519 Non-pressure chronic ulcer of other part of right foot with unspecified severity; F10.10 Alcohol abuse, uncomplicated; Z60.2 Problems related to living alone; G47.00 Insomnia, unspecified; N40.0 Benign prostatic hyperplasia without lower urinary tract symptoms; J44.9 Chronic obstructive pulmonary disease, unspecified; I48.91 Unspecified atrial fibrillation; K70.30 Alcoholic cirrhosis of liver without ascites; F32.9 Major depressive disorder, single episode, unspecified; Z20.828 Contact with and (suspected) exposure to other viral communicable diseases; F41.9 Anxiety disorder, unspecified; I11.0 Hypertensive heart disease with heart failure; E11.69 Type 2 diabetes mellitus with other specified complication; Z79.899 Other long term (current) drug therapy; Z79.82 Long term (current) use of aspirin; Z79.84 Long term (current) use of oral hypoglycemic drugs; Z68.20 Body mass index [BMI] 20.0-20.9, adult; Z89.421 Acquired absence of other right toe(s); Y83.8 Other surgical procedures as the cause of abnormal reaction of the patient, or of later complication, without mention of misadventure at the time of the procedure; Y92.89 Other specified places as the place of occurrence of the external cause
CPT/HCPCS: 10102; 10779; 50010; 50101; 50386; 50445; 50951; 51412; 56524; 56525; 56527; 57091; 57179; 62110; 62900; 70005

== ENCOUNTER 2019-09-02 12:59 | Inpatient (IN) | payer OTHER ==
[~2019-09-02] VITALS: Ht 190.5 cm; Wt 75.0 kg
[~2019-09-02 12:59] MED LIST changes: +ALLOPURINOL 10100 M1 PO; +AMITRIPTYLINE H10 M3 PO; +ATORVASTATIN CA80 MG PO; +AUGMENTIN 875-1 EACH PO; +CARVEDILOL12.5 MG PO; +HYDRALAZINE 10M10 MG PO; +HYDROCODON-ACE1 EAC7 PO; +LISINOPRIL2.5 MG PO; +PLAVIX 75 MG TA75 MG PO; +TAMSULOSIN HCL0.4 MG PO; +VITAMIN B-121000 MC2 SUBLING
[2019-09-02 13:00] VITALS: BP 146/64
[2019-09-02 13:45] LABS: ABSOLUTE NEUTROPHILS 5.5 thou/uL (1.4-8.2); BASOPHILS 0.9 % (0.0-2.0); EOSINOPHILS 6.3 % (0.0-3.0); HEMATOCRIT 32.9 % (42.0-52.0); HEMOGLOBIN 10.5 gm/dL (14.0-18.0); LYMPHOCYTES 15.9 % (24.0-44.0); MCH 29.4 pg (26.0-34.0); MCHC 31.9 g/dL (28.0-37.0); MONOCYTES 5.5 % (1.0-8.0); PLATELET COUNT 343 thou/uL (150-400); POLYS 71.4 % (36.0-66.0); RBC 3.58 mil/uL (4.50-6.00); RDW 17.5 % (10.5-14.5); WBC 7.7 thou/uL (4.0-11.0)
[2019-09-02 13:47] LABS: ANION GAP 9 mmol/L (7-16); BUN 19 mg/dL (7-18); CALCIUM 9.2 mg/dL (8.5-10.1); CHLORIDE 102 mmol/L (98-107); CO2 27 mmol/L (21-32); CREATININE 0.9 mg/dL (0.7-1.3); GLUCOSE 124 mg/dL (74-106); POTASSIUM 4.3 mmol/L (3.5-5.1); SODIUM 138 mmol/L (136-145)
[2019-09-02 13:53] LABS: ALBUMIN 2.6 g/dL (3.4-5.0); SGOT 18 U/L (15-37); SGPT 12 U/L (30-65); TOTAL BILIRUBIN 0.2 mg/dL (<0.1-1.0); TOTAL PROTEIN 8.5 g/dL (6.4-8.2)
[2019-09-02 13:54] LABS: DIRECT BILIRUBIN < 0.1 mg/dL (<0.1-0.2)
[2019-09-02 15:32] VITALS: BP 135/54
[2019-09-02 16:21] VITALS: BP 145/56
[2019-09-02 17:00] VITALS: BP 166/69
[2019-09-02 19:27] VITALS: BP 136/66
--- NOTE | 2019-09-02 19:50 | NUR ---
Pt arrived to unit per cart from emergency dept at 1700.Admission history and education completed.Pt blood sugar was 61, 120ml apple juice given x2 and dinner given as well.Wound picture to be taken by noc rn.Report off to Vitaly rn.
--- NOTE | 2019-09-03 02:43 | NUR ---
ASSUMED CARE OF PT AT 1900HRS. PT AOX4 AND LETS NEEDS BE KNOWN. FALL PRECAUTION IN PLACE. PT REPORTED SOME PAIN AND PRN PAIN MEDS WERE GIVEN. WOUND PICTURES TAKEN. ABX TREATMENT CONTINUED. PT WAS ABLE TO GET COMFORTABLE AND SLEEP PART OF THE SHIFT. VSS AND NO S/S OF ACUTE DISTRESS. WILL CONTINUE TO MONITOR FOR CHANGES.
[2019-09-03 04:29] VITALS: BP 130/67
[2019-09-03 05:57] LABS: ABSOLUTE NEUTROPHILS 3.7 thou/uL (1.4-8.2); EOSINOPHILS 9.2 % (0.0-3.0); HEMATOCRIT 29.3 % (42.0-52.0); HEMOGLOBIN 9.4 gm/dL (14.0-18.0); LYMPHOCYTES 14.1 % (24.0-44.0); MCH 29.5 pg (26.0-34.0); MCHC 32.2 g/dL (28.0-37.0); MCV 91.4 fL (80.0-100.0); MONOCYTES 6.1 % (1.0-8.0); PLATELET COUNT 293 thou/uL (150-400); POLYS 69.6 % (36.0-66.0); WBC 5.3 thou/uL (4.0-11.0)
[2019-09-03 06:09] LABS: CALCIUM 8.2 mg/dL (8.5-10.1); CREATININE 0.9 mg/dL (0.7-1.3); MAGNESIUM 1.4 mg/dL (1.8-2.4); PHOSPHORUS 3.7 mg/dL (2.5-4.9); POTASSIUM 4.7 mmol/L (3.5-5.1); TOTAL BILIRUBIN 0.3 mg/dL (<0.1-1.0); TOTAL PROTEIN 6.9 g/dL (6.4-8.2)
[2019-09-03 07:11] VITALS: BP 124/55
--- NOTE | 2019-09-03 08:47 | HC ---
[facility] [place] [address] CONSULTATION Name: VONDA WHITESIDE Room #: 454-P [facility] IN M.R.#: [id number] Admission: 09/02/19 Attend Phys: Margie Guidry MD Discharge: Date of : 45 Report #: [id number] THIS REPORT FOR: cc: PENELOPE - No family physician/PCP PENELOPE - No family physician/PCP Bobby Lee MD ~ CC: [facility]ELOPE physician/PCP Margie Guidry DATE OF SERVICE: 09/02/2019 EMERGENCY ROOM CONSULTATION NOTE LOCATION: [facility], Emergency Room. REASON FOR CONSULTATION: Gangrene and disruption of right foot transmetatarsal amputation site, status post right foot transmetatarsal amputation on 08/01/2019. HISTORY OF PRESENT ILLNESS: The patient is a 73-year-old gentleman suffering from tobacco and alcohol use with severe protein-calorie malnutrition, diabetes mellitus type 2 and peripheral vascular disease, who was previously admitted by Dr. Estrada on 07/28 with diabetic ulcers of the right foot and osteomyelitis. The patient subsequently underwent right foot transmetatarsal forefoot amputation by Dr. Michael Barksdale on 07/31. The patient was then discharged. The patient presents now to the Emergency Room with discoloration of the amputation site of the right foot and some suture disruption. I was consulted by the Emergency Room physician, Dr. Hayes. PAST MEDICAL HISTORY: 1. Diabetes mellitus type 2. 2. History of diabetic foot ulcer and osteomyelitis of the right foot. 3. Severe protein-calorie malnutrition, albumin 2.3. 4. Alcohol use. 5. Tobaccoism. 6. Generalized weakness. SOCIAL HISTORY: The patient lives alone, unsure if he gets transportation to the clinic. He had a [facility] appointment for Monday. PHYSICAL EXAMINATION: GENERAL: Shows chronically ill-appearing gentleman who is alert, pleasant and conversant. HEENT: Mucous membranes moist. NECK: Supple. LUNGS: Respirations unlabored. [facility] [address] [place] [address] CONSULTATION Name: VONDA WHITESIDE Room #: 454-P [facility] IN M.R.#: [id number] Admission: 09/02/19 Attend Phys: Margie Guidry MD Discharge: Date of : 45 Report #: [id number] ABDOMEN: Soft. EXTREMITIES: Shows unstageable pressure sore of the left heel. Index wound is of his right foot. The patient is status post transmetatarsal amputation and narrow black nylon sutures present at the incision site. These are partially disrupted with some superficial tissue necrosis. There is a wide gangrenous dorsal flap of skin measuring approximately 4 cm wide x 10 cm long. This is the entire dorsal flap of the transmetatarsal amputation. This is dry, black and gangrenous. There is no foul odor and no drainage, no redness of the foot. IMPRESSION: 1. Diabetes mellitus type 2 with history of foot ulcer and osteomyelitis. 2. Complication of right foot transmetatarsal amputation site with gangrene of the dorsal flap and wound disruption. 3. Peripheral vascular disease with gangrene, right foot. 4. Tobaccoism. 5. Alcohol use. 6. Diabetes mellitus type 2. PLAN: The patient will be admitted to Dr. Guidry, the hospitalist for IV antibiotics. He will be seen by the wound care team. The patient will require a debridement either on the floor by the wound care team in the OR by Dr. Barksdale. Gangrene of the flap should be considered a threatened limb, which could lead to below-knee amputation. Discussed the case with Dr. Beckham. The patient is admitted to the hospital by Dr. Guidry. Copy of wound care ordered. <ELECTRONICALLY SIGNED> By: Bobby Lee MD 09/03/19 0847 1426 1444 Bobby Lee MD /nt
--- NOTE | 2019-09-03 14:49 | NUR ---
Nutrition: pt admitted with right foot wound infection/vascular wound with drainage. PMH: PVD, DM, HTN, ETOH, left foot toes amputation, right foot transmetatarsal amputation. BG 81-116. No current DM meds. On B12 supplementation. Wound care following. Weights reported as stable and appetite is good. Pt would like glucerna on trays and is familiar with protein and nutrition for wound healing. Will order supplements. Place as low risk.
[2019-09-03 14:58] VITALS: BP 118/55
--- NOTE | 2019-09-03 16:23 | NUR ---
PT ADMITTED RELATED TO RT FOOT WOUND INFECTION. CM REVIEWED CHART AND SPOKE WITH CARE TEAM. CM CALED AND SPOKE WITH PT THIS AFTERNOON. PT FAMILIAR TO CM FROM PREVIOUS ADMISSION. HAD GONE HOME TO [facility] WITH [facility] ACCESS WITH [facility] . PT REFUSED POST ACUTE CARE STAY AT [facility] B/C HE WOULD HAVE BEEN QUARENTINED FOR 14 DAYS AND COULDN'T GO OUT AND SMOKE. PT HAS HCBS THROUGH [facility] . PT INDICATED THE SAME THING IF HE CAN'T GO OUTSIDE AT [facility] HE WILL RETURN HOME UPON DC. CM CONFIRMED THAT PT WOULD BE RESTRICTED AT [facility]. AWAITING ORTHO AND WC CONSULTS. CM TO FOLLOW INDICATED WITH DC PLANNING.
--- NOTE | 2019-09-03 19:12 | NUR ---
Assumed pt care at 7am.Pt in bed most of the time this shift.Able to repositioned self for comfort.Pt was concerned about not seen by wound care and [facility] since admission.Rn assured pt that he will be seen later this evening.Brent change done to rt foot as ordered.Received call from Roberta Miner np that pt will be going for debridement in am.Consent will be sign by pt later tonite.Dr Estrada here, order noted.Pt family updated about pt status.Will continue to monitor .
[2019-09-03 19:14] VITALS: BP 149/60
--- NOTE | 2019-09-04 05:19 | NUR ---
ASSUMED CARE OF T AT 1900HRS. PT AOX4 AND LETS NEEDS BE KNOWN. FALL PRECAUTION IN PLACE. ABX TREATMENT CONTINUED. PT WAS NPO AT [place] FOR AN I&D IN THE AM. PT WAS ABLE TO GET COMFORTABLE AND SLEEP PART OF THE SHIFT. VSS AND NO S/S OF ACUTE DISTRESS. WILL CONTINUE TO MONITOR.
[2019-09-04 07:00] VITALS: BP 135/68
[2019-09-04 15:06] VITALS: BP 117/62
--- NOTE | 2019-09-04 16:30 | NUR ---
FAXED REFERRAL TO [facility] RECEIVED CONFIRMATION AND LEFT MSG WITH KOKI IN ADM. DP TO FOLLOW.
--- NOTE | 2019-09-04 16:38 | NUR ---
FAXED REFERRAL TO [facility] [place] [facility] SPOKE WITH KOKI BAEZ ADM LIASON SHE RECEIVED REFERRAL AND WILL REVIEW WANTS TO KNOW IF PT WILL DC WITH IV ABX. DP TO FOLLOW.
[2019-09-04 19:30] VITALS: BP 157/79
--- NOTE | 2019-09-04 20:00 | NUR ---
PT A&OX4, VSS, DENIES PAIN. PATIENT HAD RIGHT FOOT METATARSAL AMPUTATION WITH I&D TODAY. PATIENT HAD SOME BREAKTHROUGH DRAINAGE. DRESSING REINFORCED TO RIGHT FOOT. PHOTO TAKEN OF LEFT HEEL. TWO IV'S IN RIGHT FOREARM. NO SIGNS OF DISTRESS. WILL CONTINUE TO MONITOR.
--- NOTE | 2019-09-05 00:55 | NUR ---
ASSUMED CARE ON 09/04/19, A&OX4, ABLE TO VOICE NEEDS CONTINUES ON ATB TX. REPORTS PAIN TO R FOOT OF 5/10, HYDROCODONE 5/325 PROVIDED. ACUCHECK FSBS 93, NO S/S COVERAGE REQUIRED. DRESSINGS C/D/I. 2 IV SITES ON THE RIGHT FOREARM, BOTH FLUSHED WELL.
--- NOTE | 2019-09-05 04:51 | NUR ---
IV ANTIBIOTIC TX CONTINUES ORDERED, RESTING IN BED WITH EYES CLOSED AND RESPIRATIONS EVEN AND UNLABORED.
[2019-09-05 06:30] VITALS: BP 157/79
[2019-09-05 07:25] VITALS: BP 122/53
--- NOTE | 2019-09-05 12:16 | NUR ---
FAXED UPDATE TO [facility] SPOKE WITH KOKI MENDOZA SHE RECEIVED UPDATE AND WILL SUBMIT FOR AUTH.
--- NOTE | 2019-09-05 13:02 | NUR ---
WOUND CARE FOLLOW UP; ROUNDING WITH DR BARROSO AND GILDARDO BSN. THE PATIENT IS HAVING AN ACUTE BLEEDING EPISODE OF THE RIGHT FOOT/HEEL S/P PARTIAL FOOT AMPUTATION. HEMOSTASIS WAS ACHIEVED USING GELFOAM,THROMBIN AND SILVER NITATE STICKS. ADDITIONAL PRESSURE TO THE AREA WAS PROVIDED BY GAUZE, KERLIX AND HUMBERTO WRAP. THE WOUND WAS ASSESSED AFTER ONE HOUR AND REPORTED TO DR BARROSO'S RN GILDARDO VEGA. THERE IS NO STRIKE THROUGH BLEEDING AT THIS TIME.
--- NOTE | 2019-09-05 15:19 | NUR ---
PT IS AOX4, VSS, RIGHT FOOT DRESSING CHANGED BY DR. BARROSO & NURSE. PT FOOT IS CURRENTLY ELEVATED ON PILLOW. NO BREAKTHROUGH BLEEDING AT THIS TIME. PT HAS RIGHT FA IV WITH ANTIBIOTIC THERAPY. PT RECEIVED HYDROCODONE PO FOR PAIN RELIEF. PT RATES PAIN 6/10. APPETITE IS GOOD. USES CALL LIGHT APPRORPRIATELY. WILL CONTINUE TO MONITOR.
[2019-09-05 15:33] VITALS: BP 143/62
--- NOTE | 2019-09-05 15:40 | NUR ---
PT HAS BEEN ACCEPTED MEDICALLY TO [facility]. COVID TEST WAS COMPLETED AND RESULTS WERE FAXED TO THE FACILITY. WE ARE AWAIING INSURANCE AUTH. SHOULD AUTH BE RECIEVED LATER THIS EVENING. CONTACT KOKI IN ADMISSIONS AT TO FACILITATE DC. CM TO FOLLOW INDICATED WITH DC PLANNING.
[2019-09-05 20:19] VITALS: BP 148/51
--- NOTE | 2019-09-06 07:28 | NUR ---
RECEIVED CARE OF THIS PATIENT AT 1900. PATIENT ALERT AND ORIENTED X4. DRESSING ON DONOVAN FEET D/I. C/O PAIN X3, MED GIVEN. ACCUCHECK WAS 184, RECEIVED 3 UNITS LISPRO INSULIN. SLEPT OFF AND ON DURING NIGHT.
[2019-09-06 08:06] VITALS: BP 121/52
[2019-09-06] MEDS ORDERED: BACTRIM DS TAB1 EAC1 PO ×3 (11:00)
--- NOTE | 2019-09-06 11:31 | NUR ---
ASSUMED CARE AT 0700. PT ALERT AND ORIENTED. CONCERNED ABOUT DETAILS OF FACILITY HE WILL BE GOING TO AT DISCHARGE. VSSA/RA. TOLERATING DIET, BLOOD SUGARS STABLE. PIV WITHOUT COMPLICATIONS. DRESSINGS TO BILAT FEET ARE C/D/I. PT TO BE DC TO FACILITY TODAY. WILL CONTINUE TO MONITOR
--- NOTE | 2019-09-06 12:32 | NUR ---
PT DISCHARGING TODAY TO [facility] FAXED DC ORDERS/SUMMARY TO FACILITY SPOKE WITH KOKI MENDOZA SHE RECEIVED ORDERS AND ARRANGED TRANSPORT BY [facility] FOR [id number] TODAY. NOTIFIED PT'S ALEXANDER SCHWARTZ AND LEFT MSG WITH HOPE OF DC AND TIME OF TRANSPORT. UNIT NOTIFIED AND CHART COPY PER US. RN TO CALL REPORT TO [phone].
--- NOTE | 2019-09-06 14:17 | NUR ---
CARE TEAM INDIACTED THAT PT IS MEDICALLY STABLE TO DC TO [facility] THIS DAY. FACILITY HAS INSURANCE AUTH. COVID LAB RESULTS FAXED YESTERDAY AND COVID SCREENING TOOL COMPLETED A WELL. CHART COPY ORDERED. [facility]AN TRANSPORT ARRANGED FOR [id number]. PT IS AWARE AND AGREEABLE. REPORT TO BE CALLED TO . NO OTHER CM INTERVETNION INDICATED. CASE CLOSED.
[2019-09-06 14:32] VITALS: BP 127/50
--- NOTE | 2019-09-06 14:38 | O ---
[facility] [place] [address] OPERATIVE REPORT Name: VONDA WHITESIDE Room #: 454-P AD[facility] IN M.R.#: [id number] Admission: 09/02/19 Attend Phys: Margie Guidry MD Discharge: Date of : 45 Report #: [id number] THIS REPORT FOR: cc: PENELOPE - Oksana family physician/PCP PENELOPE - No family physician/PCP Michael Barksdale MD ~ CC: [facility] physician/PCP Margie Guidry DATE OF SERVICE: 09/04/2019 PREOPERATIVE DIAGNOSES: Right foot with persistent bone and soft tissue infection following transmetatarsal amputation, right heel wound/eschar. POSTOPERATIVE DIAGNOSES: Right foot with persistent bone and soft tissue infection following transmetatarsal amputation, right heel wound/eschar. PROCEDURES PERFORMED: Revision of transmetatarsal amputation with irrigation and debridement of right foot wound and heel ulcer measuring approximately 3 x 3 cm. SURGEON: Michael Barksdale MD DIRECTOR OF CUSTOMER ACQUISITION: None. ANESTHESIA: General per LMA. FLUIDS: 500 mL crystalloid. ESTIMATED BLOOD LOSS: Approximately 5 mL. TOURNIQUET TIME: Approximately 32 minutes at 300 mmHg. DESCRIPTION OF PROCEDURE: After proper identification of the patient and the operative site in preoperative holding area, the operative site was signed by myself. Prophylactic antibiotics were given. The patient had been seen in more recent consultation by my partner, Dr. Simon Hernandez. The patient's wound team with Dr. Beckham and Dr. Estrada had made recommendations for a Dakin-soaked solution be placed after the debridement. Both my partner and myself counseled the patient that with his persistent soft tissue and bone infection and large eschar over his more superior aspect of the flap and foot that it is again very unlikely that this foot can be saved. Once again, we discussed a below-knee amputation would likely be the most reliable and predictable manner to get him to a point where he can ambulate and remain more independent. The patient is strongly opposed to any discussions of a below-knee amputation or amputation at a higher level. He has consented to a revision of his current amputation and [facility] [address] [place] [address] OPERATIVE REPORT Name: VONDA WHITESIDE Room #: 454-P [facility] IN M.R.#: [id number] Admission: 09/02/19 Attend Phys: Margie Guidry MD Discharge: Date of : 45 Report #: [id number] debridement of the necrotic tissue. We discussed that this will likely not be able to heal on its own and provide him with an ongoing source of infection that potentially can lead to more life threatening complications if he became septic. The patient would like to have the revision of this amputation and debridement only performed and then follow up with wound team. He was brought back to the operative suite. After induction of satisfactory general anesthesia, the right leg was elevated. Tourniquet was applied to the upper thigh and the limb was sterilely prepped and draped in the usual manner. It was elevated for exsanguination purposes. Tourniquet was inflated. The patient had a large dorsal eschar as well as obvious nonhealing of his transmetatarsal amputation flaps. The prior sutures were removed. Soft tissue envelope was debrided around the incision sites of the devitalized tissue. Purulent drainage was noted around the exposed bone ends and in an attempt to get back to as viable of tissue as possible. The obviously exposed and infected remaining metatarsal bones were resected at the tarsometatarsal joint. Soft tissues were debrided circumferentially in this manner. Antibiotic irrigant was utilized multiple times throughout the procedure until this was brought back to a level that the soft tissue envelope if it survives could potentially cover this area and so this was left as an open amputation, but did not appear to be further tracking of his infection into the hindfoot and this area was debrided as best as possible and as I mentioned, circumferentially, any eschar was carefully debrided over the more dorsal aspect of the foot. Next, there was an area of approximately 3 x 3 cm of pressure induced ulceration about the heel and eschar was removed in this area that went through the dermal layer and was debrided through the dermal layer. Per the wound team's request, Dakin's solution soaked sponges were used to wrap the open revision amputation part as well as around the heel ulcer and this was overwrapped with ABDs and Kerlix. He was then awakened and transferred to the recovery room in stable condition. <ELECTRONICALLY SIGNED> By: Michael Barksdale MD 09/06/19 1438 1155 1300 Michael Barksdale MD /nt
[2019-09-07] MEDS ORDERED: VITAMIN B-121000 MC2 PO ×2 (18:37)
[2019-09-07] MEDS ORDERED: TYLENOL325 MG PO ×2 (18:41)
[2019-09-07] MEDS ORDERED: FAMOTIDINE 20 M20 MG PO ×2 (18:41)
[2019-09-07] MEDS ORDERED: GLIPIZIDE ER2.5 MG PO ×2 (18:46)
== END 2019-09-06 16:35 | DRG 463 ==
LOC: ER 12:59 → EROBS 14:24 → 4W 14:24
PROVIDERS: Emergency Medicine; ADMIT Internal Medicine
PROC: 0QBN0ZZ Excision of Right Metatarsal, Open Approach (ICD-10-PCS; principal; 2019-09-04)
PROC: 0JBQ0ZZ Excision of Right Foot Subcutaneous Tissue and Fascia, Open Approach (ICD-10-PCS; principal; 2019-09-04)
DX: T87.43 Infection of amputation stump, right lower extremity (principal); E43 Unspecified severe protein-calorie malnutrition; R65.11 Systemic inflammatory response syndrome (SIRS) of non-infectious origin with acute organ dysfunction; L03.115 Cellulitis of right lower limb; E87.2 Acidosis; I42.9 Cardiomyopathy, unspecified; E11.52 Type 2 diabetes mellitus with diabetic peripheral angiopathy with gangrene; I96 Gangrene, not elsewhere classified; T87.81 Dehiscence of amputation stump; E11.51 Type 2 diabetes mellitus with diabetic peripheral angiopathy without gangrene; I50.9 Heart failure, unspecified; E11.42 Type 2 diabetes mellitus with diabetic polyneuropathy; J44.9 Chronic obstructive pulmonary disease, unspecified; I48.91 Unspecified atrial fibrillation; F32.9 Major depressive disorder, single episode, unspecified; F41.9 Anxiety disorder, unspecified; Z60.2 Problems related to living alone; F17.210 Nicotine dependence, cigarettes, uncomplicated; D63.8 Anemia in other chronic diseases classified elsewhere; L89.610 Pressure ulcer of right heel, unstageable; I11.0 Hypertensive heart disease with heart failure; L89.620 Pressure ulcer of left heel, unstageable; E11.621 Type 2 diabetes mellitus with foot ulcer; Z20.828 Contact with and (suspected) exposure to other viral communicable diseases; Z82.49 Family history of ischemic heart disease and other diseases of the circulatory system; Z88.6 Allergy status to analgesic agent; E11.628 Type 2 diabetes mellitus with other skin complications; Y83.6 Removal of other organ (partial) (total) as the cause of abnormal reaction of the patient, or of later complication, without mention of misadventure at the time of the procedure; Y92.89 Other specified places as the place of occurrence of the external cause
CPT/HCPCS: 10040; 50010; 50101; 50386; 50951; 57091; 57179; 62110; 62900; 70005

== ENCOUNTER 2019-09-07 16:06 | Inpatient (IN) | payer OTHER ==
[~2019-09-07] VITALS: Ht 190.5 cm; Wt 76.9 kg
--- NOTE | ~2019-09-07 | EMS ---
[address] [address] EMS Patient Care Report Name: VONDA WHITESIDE Room #: REG JASPER Mann#: [id number] Admission: 09/07/19 Attend Phys: Discharge: Date of : 45 Report #: [id number] THIS REPORT FOR: //name// Report Transmitted: 09/07/2019 17:09 EMS Care Summary [place], [place]/[facility] Incident [id number] @ 09/07/2019 15:13 Incident Location [address] [place] [address] Patient VONDA WHITESIDE Male, 73 Years 1945 Patient Address [address] [place], [place] [id number] Patient History Congestive Heart Failure (CHF),Chronic Obstructive Pulmonary Disease (COPD),Hypertension (HTN),Smoking,Amputee,Alcohol Abuse,Type 2 Diabetes, Patient Allergies No known allergies, Patient Medications Carvedilol, Plavix, Glipizide, Neurontin, ASA, Hydralazine, Elavil, Metformin, Allopurinol, Tamsulosin, Hydrocodone, Lipitor, Lisinopril, Chief Complaint pain with possible bleeding of r foot Disposition Transported No Lights/[place] Dispatch Reason Falls Transported To [facility] Narrative pt. states he had the toes of his r foot amputated just a couple of days ago [facility] [address] [place] [address] EMS Patient Care Report Name: VONDA WHITESIDE Room #: REG JASPER Mann#: [id number] Admission: 09/07/19 Attend Phys: Discharge: Date of : 45 Report #: [id number] and he came back home and he has been struggling with the getting around because his r foot hurts and is bandaged and last night he got his feet caught in between his power chair and couch and he fell and ever since his r foot has been hurting more and his bandages are bloody so he wants to get checked out. pt. denied any other complaints or loc. pt. was sitting upright in his power chair all alone smoking a cigarette and enjoying a glass of whiskey. pt. was in no distress. pt. r foot is dressed and bandaged and the bottom of the bandages were bloody. no change in pt. status enroute. Initial Vitals @15:54P: 79,R: 24,BP: 169/67,Pain: 8/10,GCS: 15,SpO2: 93,Revised Trauma: 12, @15:32P: 67,R: 24,BP: 174/66,Pain: 8/10,GCS: 15,SpO2: 93,Revised Trauma: 12, Assessments @15:25MENTAL:No Abnormalities,SKIN:No Abnormalities,HEENT:Head/Face: No Abnormalities,Eyes: No Abnormalities,Neck/Airway: No Abnormalities,LUNG SOUNDS:General: No Abnormalities,Left Upper: No Abnormalities,Right Upper: No Abnormalities,Left Lower: No Abnormalities,Right Lower: No Abnormalities,ABDOMEN:General: No Abnormalities,Left Upper: No Abnormalities,Right Upper: No Abnormalities,Left Lower: No Abnormalities,Right Lower: No Abnormalities,PELVIS//GI:No Abnormalities,EXTREMITIES:Right Leg: Other,Capillary Refill: Right Upper: < 2 Sec,Capillary Refill: Left Upper: < 2 Sec,Left Arm: No Abnormalities,Right Arm: No Abnormalities,Left Leg: No Abnormalities,PULSE:Radial: 2+ Normal,NEURO:No Abnormalities, Impression Extremity Pain Procedures @15:25ALS AssessmentResponse: Unchanged Timeline 15:11,Call Received 15:11,Dispatch Notified 15:13,Dispatched 15:13,En Route 15:19,On Scene 15:25,At Patient 15:25,ALS Assessment,Response: Unchanged 15:32,BP: 174/66 M,PULSE: 67,RR: 24 R,SPO2: 93 Ox,ETCO2: ,BG: ,PAIN: 8,GCS: 15, 15:33,Depart Scene 15:54,BP: 169/67 M,PULSE: 79,RR: 24 R,SPO2: 93 Ox,ETCO2: ,BG: ,PAIN: 8,GCS: 15, 16:00,At Destination 16:19,Call Closed [facility] [address] [place] [address] EMS Patient Care Report Name: VONDA WHITESIDE Room #: REG JASPER Mann#: [id number] Admission: 09/07/19 Attend Phys: Discharge: Date of : 45 Report #: [id number] Disclaimer v1.1 Copyright 2020 [employer] This EMS Care Summary contains data elements from the applicable legal record (which may be displayed differently). It is designed to provide pertinent information for the following purposes: continuity of care, clinical quality, and state data reporting. The complete legal record is available to ED staff and administrators of the receiving hospital in [facility]'s Patient Tracker. All data is provided "as is."
[~2019-09-07 16:06] MED LIST changes: +BACTRIM DS TAB1 EAC1 PO
[2019-09-07 16:07] VITALS: BP 166/78
[2019-09-07] MEDS ORDERED: VITAMIN B-121000 MC2 PO ×2 (18:37)
[2019-09-07] MEDS ORDERED: FAMOTIDINE 20 M20 MG PO ×2 (18:41)
[2019-09-07] MEDS ORDERED: TYLENOL325 MG PO ×2 (18:41)
[2019-09-07] MEDS ORDERED: GLIPIZIDE ER2.5 MG PO ×2 (18:46)
[2019-09-07 19:59] VITALS: BP 147/64
--- NOTE | 2019-09-07 20:02 | NUR ---
ATTEMPTED TO CALL RN TO RN REPORT, REPORTED THAT NURSE WOULD CALL BACK "SHE IS WITH A PATIENT THAT IS SICK."
--- NOTE | 2019-09-07 20:23 | NUR ---
PATIENT REPORTS HE "SOAKED HIMSELF IN BED BECAUSE THE LIGHTS WERE OFF" THIS NURSE OFFERED TO PROVIDE CARE AND CLEAN PATIENT, PATIENT REFUSED AND BECAME HOSTILE, GOWN WAS OFFERED.
[2019-09-07 20:40] VITALS: BP 164/64
--- NOTE | 2019-09-08 01:15 | NUR ---
PATIENT ALERT AND ORIENTED X4. ARRIVED VIA CART FROM ED AT 2034 WITH AIDE. PATIENT TALKS VERY LOUD, HOWEVER, DENIES HEARING PROBLEM. DOES NOT FOLLOW DIRECTIONS UNTIL HE IS READY AND IS RUDE TO THIS NURSE. ANOTHER NURSE CAME IN THE ROOM DURING HIS ADMISSION TO TRY AND GET HIM TO COOPERATE. WILL MONITOR.
--- NOTE | 2019-09-08 05:26 | NUR ---
PATIENT ALERT AND ORIENTED X4. DIFFICULT WITH COOPERATION. WOUNDS DOCUMENTED PER PROTOCOL. WAITING FOR COVID RESULTS TO TRANSFER TO LONG-TERM FACILITY. PATIENT REQUESTED HIS BELONGINGS STAY AT HIS BEDSIDE (BILFOLD AND KEYS) HE STATES HE WILL BE LEAVING TODAY. THESE ITEMS ALONG WITH HIS CLOTHES ARE IN A RED DUFFLE BAG AT BEDSIDE. RESTING QUIETLY AT TIME OF NOTE. DENIES PAIN. WILL MONITOR.
[2019-09-08 05:48] LABS: HEMATOCRIT 23.4 % (42.0-52.0); HEMOGLOBIN 7.4 gm/dL (14.0-18.0); MCH 28.6 pg (26.0-34.0); MCHC 31.6 g/dL (28.0-37.0); MCV 90.4 fL (80.0-100.0); RBC 2.59 mil/uL (4.50-6.00); RDW 17.2 % (10.5-14.5)
[2019-09-08 06:12] LABS: CALCIUM 8.2 mg/dL (8.5-10.1); CREATININE 0.8 mg/dL (0.7-1.3); POTASSIUM 4.1 mmol/L (3.5-5.1)
[2019-09-08 08:00] VITALS: BP 157/53
--- NOTE | 2019-09-08 19:55 | NUR ---
Assumed patient care at 0715. Patient was to be Discharged when confirmed of Covid Negative status. Patient was on Observation Status but was changed to Inpatient Status per Dr Quinn. Case Management to work on discharge Facility/Plans tomorrow. Patient has been complaining about being here throughout the shift. His speech is very loud. He has requested and received Hydrocodone for right foot pain twice during this shift; medication effective. Patient is alert and oriented x's 4. He has been taking medications whole, has no IV access. Report given to on-coming.
[2019-09-08 20:01] VITALS: BP 132/42
--- NOTE | 2019-09-09 03:38 | NUR ---
ASSUMED PT CARE AROUND 1914. AXOX3. VSS. NO S/S ACUTE DISTRESS NOTED OR REPORTED AT THIS TIME. WILL CONT TO MONITOR FOR ANY CHANGES IN CONDITION.
[2019-09-09 04:17] VITALS: BP 121/50
[2019-09-09 07:47] VITALS: BP 157/55
--- NOTE | 2019-09-09 13:19 | NUR ---
FAXED CLINICAL UPDATE TO [facility] SPOKE WITH KOKI IN ADM SHE RECEIVED UPDATE AND WILL NEED A NEW COVID 19 TEST DRAWN PRIOR TO RETURNING TO FACILITY. DP TO FOLLOW.
--- NOTE | 2019-09-09 14:29 | NUR ---
cm visited with pt via phone call, he reported agreeable to go back to [facility], as long as i can have tv, phone and be able to go outside to smoke. i should have stayed last time but i was not prepared for that and now i have to go back because diff with mobility. down have not spoke with guillermo if you can call her and have her call me. thank you for call"/yanci.
[2019-09-09 14:45] VITALS: BP 155/52
--- NOTE | 2019-09-09 18:33 | NUR ---
Assumed patient care at 0715. Vital signs are stable. LSCTA, ABD distended, BS x's 4. Patient was given Miralax for constipation. No results as of this time. Wound care here today; new orders recieved. 2nd In House Covid test ordered, completed per this nurse. Patient was not happy about this, yelling. He has calmed down since. Blood sugars have been checked AC; within normal limits. Patient has requested and recieved Hydrocodone x's 2 during this shift for right foot pain; medication effective. Will report to on-coming nurse.
[2019-09-09 21:20] VITALS: BP 153/27
--- NOTE | 2019-09-09 21:43 | NUR ---
PT TRASFERRED TO 4S ROOM 435. TRIED TO REACH OUT TO DILLON YOO BACK, NO ANSWER. ALL BELONGING SENT WITH PT.
--- NOTE | 2019-09-10 04:38 | NUR ---
PT WAS TRANSFERRED FROM , PT IS AWAKE, ALERT AND ORIENTEDX4, MAKES NEEDS KNOWN, VSS, C/O PAIN, MEDICATED PRN, NO FURTHER COMPLAINS, MEDICATIONS GIVEN ORDERED, RESTING IN BED, NO CONCERNS VOICED, WILL CONTINUE TO MONITOR
[2019-09-10 05:40] VITALS: BP 143/57
[2019-09-10 07:30] VITALS: BP 135/51
[2019-09-10] MEDS ORDERED: ACETAMINOPHEN325 M1 PO ×2 (12:47)
[2019-09-10] MEDS ORDERED: MILK OF MA2400 MG/11 PO ×2 (12:47)
[2019-09-10] MEDS ORDERED: SENNA-TIME S T1 EACH PO ×2 (12:47)
[2019-09-10] MEDS ORDERED: HYDROCODON-ACE1 EAC7 PO ×2 (12:47)
[2019-09-10] MEDS ORDERED: MIRALAX17 GM PO ×2 (12:47)
--- NOTE | 2019-09-10 12:55 | NUR ---
WOUND CONSULT/FOLLOW UP; I WAS ASKED TO HELP WITH A PATIENT OF DR BELGICA YOUNG TODAY WHO WAS ACTIVELY BLEEDING. THIS IS A KNOWN PATIENT TO ME. THE ROOM HAD SIGNS OF A LARGE AMOUNT OF BLEEDING WHICH HAD ALMOST ACHIEVED HEMOSTASIS WHICH THE STAFF HAD SUCCESSFULLY ACHIEVED. I TOOK THE DRESSING DOWN AND ASSESSED THE WOUND WHICH HAD SMALL TO MODERATED CAPPILLARY BLEEDING. I CLEANSED THE WOUND WITH NORMAL SALINE GENTLY AND ADDED GELFOAM,ABD,KERLIX AND HUMBERTO WRAP. I FOLLOWED UP IN 1 HOUR LATER AND THERE IS NO STRIKE THROUGH DRAINAGE.
--- NOTE | 2019-09-10 13:37 | NUR ---
PT DISCHARGING TODAY TO [facility] FAXED DC ORDERS/SUMMARY TO FACILITY SPOKE WITH KOKI MENDOZA SHE RECEIVED ORDERS AND ARRANGED TRANSPORT BY [facility] FOR [phone] TODAY. NOTIFIED PT'S ALEXANDER NICK) OF DC AND TIME OF TRANSPORT. UNIT NOTIFIED AND CHART COPY PER US. RN TO CALL REPORT TO [phone].
[2019-09-10 14:51] VITALS: BP 135/51
--- NOTE | 2019-09-10 15:25 | NUR ---
AUTH WAS RECIEVED FOR PT O DC TO [facility] THIS DAY. CHART COPY ORDERED. ORDERS FAXED. [facility] TRANSPORT HAD BEEN ARRANGED FOR [id number]. NURSE TURNED THEM AWAY PT'S STUMP OPENED THIS AM AND PT NEEDS STRETCHER TRANSPORT. STRETCHER VAN ARRANGED FOR AROUND 1330. REPORT CALLED TO FACILITY. NO OTHER CM INTERVENTION INDICATED. CASE CLOSED.
--- NOTE | 2019-09-10 17:23 | HC ---
[facility] [place] [address] CONSULTATION Name: VONDA WHITESIDE Room #: 435-P [facility] IN M.R.#: [id number] Admission: 09/07/19 Attend Phys: Ishmael Quinn MD Discharge: 09/10/19 Date of : 45 Report #: [id number] THIS REPORT FOR: cc: PENELOPE - No family physician/PCP PENELOPE - No family physician/PCP Sagar Estrada MD ~ CC: [facility] physician/PCP Ishmael Quinn DATE OF SERVICE: 09/09/2019 CHIEF COMPLAINT: Surgical wound to the right foot following transmetatarsal amputation and unstageable pressure ulcers to both heels. HISTORY OF PRESENT ILLNESS: This is a 73-year-old male patient with whom I am familiar from a very recent hospitalization. He was most recently admitted on September 01 with necrosis of the dorsal flap of his previous right transmetatarsal amputation site as well as interval development of pressure ulcers to both heels. He has a history of type 2 diabetes mellitus and peripheral vascular disease. He was admitted and underwent a debridement of his right foot in spite of the fact that it was recommended that he have a below-knee amputation as it is felt that his right lower extremity and foot are not salvageable. He; however, would not agree to this but did agree to the debridement. He was discharged to a prison facility, apparently did not like the prison facility, decided to leave, fell and was brought back to the Emergency Department and has been admitted. It appears that his dressings are intact which are the same dressings he left the hospital with here on Monday. PAST MEDICAL HISTORY: Type 2 diabetes mellitus, diabetic foot ulcerations, osteomyelitis of the right foot, severe protein-calorie malnutrition, history of alcohol use, ongoing tobacco use. SOCIAL HISTORY: The patient lives alone. It is very important to him that he live in an apartment, be able to keep his dog. He smokes cigarettes daily. FAMILY HISTORY: Noncontributory. ALLERGIES: METFORMIN. MEDICATIONS: Include Neurontin, Plavix, Elavil, atorvastatin, Zestril, Zyloprim, Apresoline, Coreg, tamsulosin, vitamin C, vitamin B12, and glipizide. REVIEW OF SYSTEMS: CONSTITUTIONAL: The patient denies fever, chills, or weight loss. NEUROLOGICAL: The patient denies focal weakness, numbness, or tingling. EYES: The patient denies visual changes, redness, or drainage. [address] [address] CONSULTATION Name: VONDA WHITESIDE Room #: 435-P [facility] IN M.R.#: [id number] Admission: 09/07/19 Attend Phys: Ishmael Quinn MD Discharge: 09/10/19 Date of : 45 Report #: [id number] ENT: The patient denies earache, nasal drainage, or sore throat. CARDIOVASCULAR: The patient denies chest pain, palpitations, or diaphoresis. PULMONARY: The patient denies cough or shortness of breath. GASTROINTESTINAL: The patient denies nausea, vomiting, diarrhea, or abdominal pain. ORTHOPEDIC: The patient denies pain in his lower extremities. He is aware of the surgical wounds and pressure ulcerations to the heels. Other systems in a 14-point review of systems are negative. PHYSICAL EXAMINATION: CURRENT VITAL SIGNS: Include temperature 36.2, pulse 51, respiratory rate of 17, blood pressure 155/52. GENERAL: This is a chronically ill-appearing male patient who appears to be in no obvious distress. HEENT: Head normocephalic. Nose and throat clear. NECK: Supple. LUNGS: Clear. HEART: Regular. ABDOMEN: Soft. Bowel sounds present. EXTREMITIES: Lower extremities demonstrate diminished distal pulses. Dressings have been taken down. He has dry stable eschar involving his left posterior heel. He has a somewhat necrotic and dry right posterior heel. The surgical site following the debridement of his right foot shows that the tissue appears to be somewhat dusky. It is not infected, there is no active bleeding, but there is some soft tissue necrosis that was not seen on the day of his discharge. NEUROLOGICAL: The patient is alert and oriented. LABORATORY STUDIES: Include white blood cell count 6000, hemoglobin 7.4. Sodium 142, potassium 4.1, chloride 107, CO2 of 22, BUN 15, creatinine 0.8, glucose of 65, calcium is 8.2. CLINICAL IMPRESSION: 1. Cellulitis of the right lower extremity with diabetic ulcer of the plantar surface of the right foot, now much improved. 2. Dorsal flap necrosis, status post transmetatarsal amputation, 08/01/2019, now status post open transmetatarsal amputation revision. 3. Unstageable pressure ulcer to the right heel. 4. Callus at the base of the fifth MTP, left foot. 5. Unstable pressure ulcer to the left heel. 6. Type 2 diabetes mellitus. 7. Peripheral arterial disease. 8. Tobacco abuse. 9. Alcohol abuse. 10. Severe protein-calorie malnutrition, albumin 2.0. [facility] [address] [place] [address] CONSULTATION Name: OVNDA WHITESIDE Room #: 435-P DIS IN Robbie.#: [id number] Admission: 09/07/19 Attend Phys: Ishmael Quinn MD Discharge: 09/10/19 Date of : 45 Report #: [id number] RECOMMENDATIONS: At this point in time, we will recommend Xeroform to the right heel, Betadine and dry gauze to the left heel. We will recommend saline moist gauze packing to the open surgical wound of the right foot to be changed daily. He will need aggressive nutritional support. Once again, it is felt that the right foot is not salvageable and I doubt that it will heal and the current recommendation still would be that he will require at least a below-knee amputation on that side for definitive care. He; however, is adamant that he does not wish to have this done at this time. Recommendations of continuing his current medications. I appreciate being asked to see him in consultation. <ELECTRONICALLY SIGNED> By: Sagar Estrada MD 09/10/19 1723 [id number] Sagar Estrada MD /nt
== END 2019-09-10 15:59 | DRG 564 ==
LOC: ER 16:06 → EROBS 18:48 → ER 18:48 → 4W 18:48 → EROBS 21:13 → 4W 21:13 → 4S 09-09 21:12 → 4W 09-09 21:12 → 4S 09-10 11:07
PROVIDERS: Nurse Practitioner Family; ADMIT Internal Medicine
DX: T87.53 Necrosis of amputation stump, right lower extremity (principal); E43 Unspecified severe protein-calorie malnutrition; L97.419 Non-pressure chronic ulcer of right heel and midfoot with unspecified severity; I42.9 Cardiomyopathy, unspecified; D68.69 Other thrombophilia; L03.115 Cellulitis of right lower limb; R65.10 Systemic inflammatory response syndrome (SIRS) of non-infectious origin without acute organ dysfunction; E11.621 Type 2 diabetes mellitus with foot ulcer; T14.8XXA Other injury of unspecified body region, initial encounter; E11.622 Type 2 diabetes mellitus with other skin ulcer; E11.65 Type 2 diabetes mellitus with hyperglycemia; E11.51 Type 2 diabetes mellitus with diabetic peripheral angiopathy without gangrene; I50.9 Heart failure, unspecified; J44.9 Chronic obstructive pulmonary disease, unspecified; I48.91 Unspecified atrial fibrillation; F32.9 Major depressive disorder, single episode, unspecified; F41.9 Anxiety disorder, unspecified; F17.210 Nicotine dependence, cigarettes, uncomplicated; M25.772 Osteophyte, left ankle; K59.00 Constipation, unspecified; Z20.828 Contact with and (suspected) exposure to other viral communicable diseases; L89.620 Pressure ulcer of left heel, unstageable; Z79.82 Long term (current) use of aspirin; Z89.429 Acquired absence of other toe(s), unspecified side; Z89.431 Acquired absence of right foot; Z79.01 Long term (current) use of anticoagulants; Z79.891 Long term (current) use of opiate analgesic; Z88.8 Allergy status to other drugs, medicaments and biological substances; Z68.21 Body mass index [BMI] 21.0-21.9, adult; Z79.899 Other long term (current) drug therapy; Y82.8 Other medical devices associated with adverse incidents; Y83.8 Other surgical procedures as the cause of abnormal reaction of the patient, or of later complication, without mention of misadventure at the time of the procedure; I11.0 Hypertensive heart disease with heart failure
CPT/HCPCS: 10040; 10045; 10100; 10195

== ENCOUNTER 2019-09-10 19:21 | Emergency (ER) | payer OTHER ==
[~2019-09-10] VITALS: Ht 190.5 cm; Wt 73.0 kg
[~2019-09-10 19:21] MED LIST changes: +ACETAMINOPHEN325 M1 PO; +FAMOTIDINE 20 M20 MG PO; +MILK OF MA2400 MG/11 PO; +MIRALAX17 GM PO; +SENNA-TIME S T1 EACH PO; +TYLENOL325 MG PO; +VITAMIN B-121000 MC2 PO
[2019-09-10 20:45] LABS: ABSOLUTE NEUTROPHILS 6.2 thou/uL (1.4-8.2); BASOPHILS 0.9 % (0.0-2.0); EOSINOPHILS 5.8 % (0.0-3.0); HEMATOCRIT 22.8 % (42.0-52.0); HEMOGLOBIN 7.3 gm/dL (14.0-18.0); LYMPHOCYTES 17.9 % (24.0-44.0); MCHC 32.3 g/dL (28.0-37.0); MCV 89.9 fL (80.0-100.0); MONOCYTES 7.3 % (1.0-8.0); PLATELET COUNT 408 thou/uL (150-400); POLYS 68.1 % (36.0-66.0); RBC 2.53 mil/uL (4.50-6.00); WBC 9.2 thou/uL (4.0-11.0)
[2019-09-10 21:06] LABS: CALCIUM 8.5 mg/dL (8.5-10.1); CREATININE 1.3 mg/dL (0.7-1.3)
[2019-09-10 22:45] VITALS: BP 107/85
== END 2019-09-10 23:05 | disposition home or self-care (01) ==
LOC: ER 19:21
PROVIDERS: Student in an Organized Health Care Education/Training Program
DX: M96.830 Postprocedural hemorrhage of a musculoskeletal structure following a musculoskeletal system procedure (principal); I11.0 Hypertensive heart disease with heart failure; I50.9 Heart failure, unspecified; J44.9 Chronic obstructive pulmonary disease, unspecified; I48.91 Unspecified atrial fibrillation; F17.210 Nicotine dependence, cigarettes, uncomplicated; Z88.8 Allergy status to other drugs, medicaments and biological substances; Z79.82 Long term (current) use of aspirin; Z79.899 Other long term (current) drug therapy